=== PATIENT | female | born 1960 | race Caucasian/White ===

== ENCOUNTER → 2021-04-12 | Day surgery (SDC) | payer MEDICARE, OTHER ==
[~2021-04-12] VITALS: Ht 170.2 cm; Wt 149.7 kg
[~2021-04-12] MED LIST: DOXAZOSIN MESYLA4 MG PO; EUTHYROX125 MCG PO; LEVOTHYROXINE100 MCG PO; LIOTHYRONINE S25 MCG PO; LIOTHYRONINE SO5 MCG PO; MAG-OXIDE 400M400 MG PO; NORCO 5/3251 EACH PO; POTASSIUM CHLO10 ME1 PO; TRIAMTERENE-HC1 EACH PO; VITAMIN C 500500 MG PO; VITAMIN D310 MCG PO; XANAX0.5 MG PO; ZINC30 MG PO
[2021-04-12 08:58] LABS: HCT 43.5 % (37.0-47.0); HGB 14.3 g/dl (12.5-16.0); MCH 27.7 pg (25.0-31.0); MCHC 32.9 g/dL (32.0-36.0); MCV 84.1 fL (78.0-100.0); RBC 5.17 M/uL (4.20-5.40); RDW 13.4 % (11.5-14.0); WBC 5.7 K/uL (4.0-10.5)
[2021-04-12 09:16] LABS: ALBUMIN 3.6 g/dL (3.4-5.0); BILIRUBIN - TOTAL 0.7 mg/dL (0.2-1.0); BUN/CREAT RATIO (CALC) 16.8 RATIO; CREATININE 0.95 mg/dL (0.51-0.95); GLOBULIN (CALCULATION) 3.2 g/dL; POTASSIUM 3.7 mmol/L (3.5-5.1); TOTAL PROTEIN 6.8 g/dL (6.4-8.2)
== END | disposition home or self-care (01) ==
LOC: FAS 08:16
PROVIDERS: Surgery
DX: Z12.11 Encounter for screening for malignant neoplasm of colon (principal); K63.5 Polyp of colon; E66.01 Morbid (severe) obesity due to excess calories; E89.0 Postprocedural hypothyroidism; I10 Essential (primary) hypertension; J45.909 Unspecified asthma, uncomplicated; G47.30 Sleep apnea, unspecified
CPT/HCPCS: 36415; 80053; J1610; J2704; J7120